=== PATIENT | female | born 2000 | race Caucasian/White ===

== ENCOUNTER → 2020-04-13 15:37 | Outpatient (CLI) | payer OTHER, SELFPAY ==
--- NOTE | ~2020-04-13 | XR_ITS ---
EXAMINATION: XR cervical spine 4-5V EXAM DATE: 04/13/2020 16:20 INDICATION: Neck and back pain . TECHNIQUE: Cervical spine frontal, lateral, lateral swimmers, and open-mouth odontoid projections. There is no prior study for comparison. FINDINGS: There is mild reversal of the normal cervical lordosis which may be positional or spasm. Th ere is no evidence of acute cervical fracture. The odontoid process is intact. Pre-dens space is no rmal. Prevertebral soft tissue is normal. There are no soft tissue abnormalities identified. The vertebral bodies are aligned. Vertebral body and disc heights are well-maintained. No appreciable arthropathy. IMPRESSION: Reversed cervical lordosis could indicate spasm. Otherwise normal cervical x-ray. Reviewed, dictated and finalized at location B. P CUTTER IMPRESSION: Reversed cervical lordosis could indicate spasm. Otherwise normal c ervical x-ray.
--- NOTE | ~2020-04-13 | XR_ITS ---
EXAMINATION: XR lumbar spine 2-3V EXAM DATE: 04/13/2020 16:20 INDICATION: Low back pain. TECHNIQUE: Lumber spine frontal, lateral, lateral L5-S1 projections for interpretation. There is no prior study for comparison. FINDINGS: The vertebral bodies are aligned in the AP dimension. Vertebral body and disc heights are well-maintained. No spondylolysis suspected. Sacrum, sacroiliac joints, sacral arcuate lines are inta ct. Paraspinal soft tissue is unremarkable. No appreciable arthropathy. IMPRESSION: Unremarkable XR lumbar spine 2-3V exam. Reviewed, dictated and finalized at location B. TH EDUCATION SPECIALIST
== END ==
PROVIDERS: Visit Provider Chiropractor Rehabilitation
DX: M54.2 Cervicalgia (principal); M54.5 Low back pain
CPT/HCPCS: 72050; 72100

== ENCOUNTER 2020-08-21 17:30 | Outpatient (CLI) | payer OTHER, SELFPAY | END 2020-08-21 17:31 | disposition home or self-care (01) | LOC: ANHCOVIDVC 17:31 | PROVIDERS: PCP Obstetrics & Gynecology | DX: Z23 Encounter for immunization (principal) | CPT/HCPCS: 0001A; 91300 ==

== ENCOUNTER 2020-09-11 17:07 | Outpatient (CLI) | payer OTHER, SELFPAY | END 2020-09-11 17:08 | disposition home or self-care (01) | LOC: ANHCOVIDVC 17:07 | PROVIDERS: PCP Obstetrics & Gynecology | DX: Z23 Encounter for immunization (principal) | CPT/HCPCS: 0002A; 91300 ==

== ENCOUNTER 2021-09-27 17:35 | Emergency (ER) | payer OTHER, SELFPAY ==
--- NOTE | 2021-09-27 18:00 | ED.URI ---
HPI - URI/Sore Throat General Chief Complaint: Upper Respiratory Infection Stated Complaint: congestion,bilateral ear pain,headache Time Seen by Provider: 09/27/21 18:49 Source: patient and RN notes reviewed Mode of arrival: ambulatory Limitations: no limitations History of Present Illness HPI Narrative: 21-year-old female presents with concern for 3-day history of nasal congestion, ear pain, headache, sore throat. Reports concern. Reports she has tried Zyrtec without relief. She denies fever, body aches, chills, sweats. Reports occasional cough. MD elicited complaint: sore throat and nasal congestion Related Data Allergies Allergy/AdvReac Type Severity Reaction Status Date / Time silicone Allergy Unknown Verified 09/27/21 18:42 Review of Systems Review of Systems: CONSTITUTIONAL: Denies malaise, chills, sweats, or fever. EYES: Denies visual changes, redness, or discharge. ENT: Reports rhinorrhea, congestion, otalgia and sore throat. CARDIOVASCULAR: Denies chest pain, palpitations, or edema. RESPIRATORY: Denies cough. Denies dyspnea. GASTROINTESTINAL: Denies abdominal pain, nausea, vomiting, diarrhea SKIN: Denies rash or itching. MUSCULOSKELETAL: Denies myalgia. NEUROLOGIC: Denies headache. All systems reviewed & are unremarkable except as noted in HPI and below PMFSH Comments At time of signature, agree with nursing past medical, surgical, social and family history. There is no relevant family history pertinent to the presenting complaint Exam Narrative: GENERAL: Well-appearing, well-nourished, and in no acute distress. HEAD: Normocephalic EYES: PERRLA, conjunctivae clear ENT: Nares clear, turbinates edematous and erythematous, clear discharge. Mucous membranes moist. TM pearly howard with dull light reflex bilaterally; no tragal tenderness. Oropharynx not erythematous without lesions. Tonsils not enlarged and without exudate, no drooling, no hoarseness, no trismus, uvula midline. NECK: Supple. No lymphadenopathy CHEST: Clear to auscultation, breath sounds equal. No wheezing, rhonchi, rales, or stridor. No respiratory distress, speaks in full sentences. HEART: Regular rate and rhythm. No murmur heard. SKIN: Warm, dry, no rash. NEURO: Alert and oriented x3. PSYCH: Normal mood and affect Course Course Emergency Course: Patient is aware of diagnosis, understands and agrees to treatment plan. Anticipatory guidance given. Patient agrees to follow-up as directed and is aware of reasons to seek care at the emergency department. Portions of this record may have been created with voice recognition software Level of Care: Express Care Visit Vital Signs Vital signs: Vital Signs Temperature 97.9 F 09/27/21 18:20 Pulse Rate 92 09/27/21 18:20 Respiratory Rate 18 09/27/21 18:20 Blood Pressure 123/70 09/27/21 18:20 Pulse Oximetry 100 09/27/21 18:20 Temperature 97.9 F 09/27/21 18:20 Pulse Rate 92 09/27/21 18:20 Respiratory Rate 18 09/27/21 18:20 Blood Pressure 123/70 09/27/21 18:20 Pulse Oximetry 100 09/27/21 18:20 Reviewed. MDM - URI/Sore Throat MDM Narrative Medical decision making narrative: Differential diagnosis considered: Ortiz virus, strep pharyngitis, allergic rhinitis, upper respiratory tract infection, sinusitis, rhinosinusitis, nasopharyngitis. viral pharyngitis, otitis media, otitis externa, pneumonia, bronchitis, viral cough syndrome, viral syndrome, and influenza. Exam findings show no acute concerns or changes; patient is non-toxic appearing and is in no distress. Patient is appropriate for outpatient treatment and follow-up. Lab Data Attestation: I reviewed the patient's lab results. Critical Care Time Critical Care Time Critical Care Time: No Discharge Plan Discharge Clinical Impression: Upper respiratory infection Qualifiers: URI type: unspecified viral URI Qualified Code(s): J06.9 - Acute upper respiratory infection, unspecified Patient Disposition: Home, Self-
[2021-09-27 18:20] VITALS: BP 123/70; PULSE 92; RESP 18; TEMP 36.6; O2SAT 100
== END 2021-09-27 19:00 | disposition home or self-care (01) ==
PROVIDERS: Emergency Provider Nurse Practitioner; PCP Nurse Practitioner
DX: J06.9 Acute upper respiratory infection, unspecified (principal); E28.2 Polycystic ovarian syndrome
CPT/HCPCS: 87081; 87880; 99213; G0463

== ENCOUNTER 2021-11-22 16:48 | Outpatient (CLI) | payer OTHER, SELFPAY ==
--- NOTE | ~2021-11-22 | US_ITS ---
EXAMINATION: US thyroid DATE: 11/22/2021 17:11 INDICATION: Abnormal labs, possible goiter. TECHNIQUE: Multiple ultrasound images of the thyroid were obtained. COMPARISON: None. FINDINGS: The right thyroid lobe measures 4.6 x 1.7 x 1.5 cm. The left thyroid lobe measures 4.6 x 1.0 x 1.7 c m. There is normal echotexture and echogenicity throughout the thyroid gland. No discrete nodules id entified. Normal vascular flow is present. IMPRESSION: 1. Normal thyroid ultrasound findings. Reviewed, dictated and finalized at location K.
== END 2021-11-22 16:49 | disposition home or self-care (01) ==
PROVIDERS: PCP Nurse Practitioner; Visit Provider Internal Medicine Endocrinology, Diabetes & Metabolism
DX: E04.9 Nontoxic goiter, unspecified (principal)
CPT/HCPCS: 76536